=== PATIENT | female | born 1970 | race Caucasian/White ===

== ENCOUNTER → 2016-04-29 | Outpatient (CLI) | payer OTHER | LOC: MMPC 09:00 | PROVIDERS: ATTEND Family Medicine | DX: G89.29 Other chronic pain (principal); E10.9 Type 1 diabetes mellitus without complications; F32.9 Major depressive disorder, single episode, unspecified; G47.09 Other insomnia | CPT/HCPCS: 99213; G0463 ==

== ENCOUNTER 2016-05-19 11:44 | Day surgery (SDC) | payer OTHER ==
[~2016-05-19 11:44] MED LIST: LIDOCAINE W/ SODIUM BICARB 0.5 ML SYR ONE; Lactated Ringers 1,000 ML PRIMARY IV ONE; ceFAZolin Inj 2gm (Premix) 50 ML IV ONE
[2016-05-19 12:26] VITALS: RESP 16
[2016-05-19 12:55] LABS: CALCIUM 8.7 mg/dL (8.7-10.7); POTASSIUM 4.6 meq/L (3.8-5.2)
[2016-05-19] MEDS ORDERED: MEPIVACAINE HCL/PF 20 MG/1 ML IV ONE (13:39)
[2016-05-19] MEDS ORDERED: LIDOCAINE 2%/ EPI 1:200,000 - 20 ML VIAL ONE (13:39)
[2016-05-19] MEDS ORDERED: MIDAZOLAM 5 MG/1 ML ONE (13:40)
[2016-05-19] MEDS ORDERED: fentaNYL Inj 100 MCG/2 ML VIAL ONE (13:40)
[2016-05-19] MEDS ORDERED: DEXAMETHASONE SOD PHOSPHATE 4 MG/1 ML VIAL ONE (13:40)
--- NOTE | 2016-05-19 14:11 | CRNA.PROCE ---
Nerve Block Documentation - - Safety Measures: Time Out Taken, Site Verified - - Type of Nerve Block Used: Left Axillary Block (Primary anesthetic for Left CTR. 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
[2016-05-19] MEDS ORDERED: Prochlorperazine Tab 10 MG TAB PO PRN (16:08)
[2016-05-19] MEDS ORDERED: IBUPROFEN 400 MG TABLET PO PRN (16:08)
[2016-05-19] MEDS ORDERED: ACETAMINOPHEN 325 MG TABLET PO PRN (16:08)
[2016-05-19] MEDS ORDERED: NORMAL SALINE 10 ML SYRINGE FLUSH IVP PRN (16:08)
[2016-05-19] MEDS ORDERED: HYDROcodone-APAP 5 MG -325 MG TABLET PO PRN (16:08)
[2016-05-19] MEDS ORDERED: BISACODYL 5 MG TABLET PO PRN (16:08)
[2016-05-19] MEDS ORDERED: ONDANSETRON 4 MG/2 ML VIAL IVP PRN (16:08)
[2016-05-19] MEDS ORDERED: diphenhydrAMINE 25 MG CAPSULE PO PRN (16:08)
[2016-05-19] MEDS ORDERED: BISACODYL 10 MG SUPPOSITORY RECTAL PRN (16:08)
[2016-05-19] MEDS ORDERED: CALCIUM CARBONATE 500 MG (TUMS) CHEWABLE TABLET PO PRN (16:08)
[2016-05-19] MEDS ORDERED: MORPHINE SULFATE 2 MG/1 ML IVP PRN (16:08)
[2016-05-19] MEDS ORDERED: MAG HYDROX/AL HYDROX/SIMETH 30 ML SUSP PO PRN (16:08)
[2016-05-19] MEDS ORDERED: Ondansetron ODT Tab 8 MG TAB PO PRN (16:08)
[2016-05-19 17:01] VITALS: TEMP 97
== END 2016-05-19 16:50 | disposition home or self-care (01) ==
LOC: SDSC 11:44
PROVIDERS: ATTEND Orthopaedic Surgery
DX: G56.02 Carpal tunnel syndrome, left upper limb (principal)
CPT/HCPCS: 36415; 64721; 80048; J0690; J3010; J0670; J1100; J2250; J7120

== ENCOUNTER → 2016-05-27 | Outpatient (CLI) | payer OTHER | LOC: MOB LAB 10:46 | PROVIDERS: ATTEND Family Medicine | DX: M54.2 Cervicalgia (principal); E55.9 Vitamin D deficiency, unspecified; E10.9 Type 1 diabetes mellitus without complications; E10.42 Type 1 diabetes mellitus with diabetic polyneuropathy; Z79.4 Long term (current) use of insulin; N18.9 Chronic kidney disease, unspecified; M25.532 Pain in left wrist; G89.29 Other chronic pain; K59.03 Drug induced constipation; F32.9 Major depressive disorder, single episode, unspecified; F17.210 Nicotine dependence, cigarettes, uncomplicated | CPT/HCPCS: 36415; 82306; 99213; G0463 ==

== ENCOUNTER → 2016-06-22 | Outpatient (CLI) | payer OTHER | LOC: MOB LAB 10:55 | PROVIDERS: ATTEND Family Medicine | DX: M54.2 Cervicalgia (principal); E10.42 Type 1 diabetes mellitus with diabetic polyneuropathy; Z79.4 Long term (current) use of insulin; N18.9 Chronic kidney disease, unspecified; G47.09 Other insomnia; M54.5 Low back pain; G89.29 Other chronic pain | CPT/HCPCS: 99214; G0463 ==

== ENCOUNTER → 2016-07-20 | Outpatient (CLI) | payer OTHER | LOC: MMPC 09:00 | PROVIDERS: ATTEND Family Medicine | DX: G89.4 Chronic pain syndrome (principal); E11.42 Type 2 diabetes mellitus with diabetic polyneuropathy; G47.09 Other insomnia | CPT/HCPCS: 80305; 99213; G0463 ==

== ENCOUNTER → 2016-08-17 | Outpatient (CLI) | payer OTHER ==
[2016-08-17 13:08] LABS: BASOPHILS # (AUTO) 0.06 10*3/UL; BASOPHILS % (AUTO) 0.5 % (0-1); EOSINOPHILS # (AUTO) 0.19 10*3/UL; EOSINOPHILS % (AUTO) 1.5 % (0-8); HEMATOCRIT 41.4 % (37.0-47.0); HEMOGLOBIN 13.6 g/dL (12.0-16.0); LYMPHOCYTES # (AUTO) 3.61 10*3/uL; MEAN CORPUSCULAR HEMOGLOBIN 31.5 PG (27-31); MEAN CORPUSCULAR HGB CONC 32.9 g/dL (33-37); MEAN CORPUSCULAR VOLUME 95.8 FL (81-99); MEAN PLATELET VOLUME 9.4 FL (7.4-12.2); MONOCYTES # (AUTO) 0.94 10*3/UL (0.3-0.8); MONOCYTES % (AUTO) 7.5 % (5-15); NEUTROPHILS # (AUTO) 7.76 10*3/UL; NEUTROPHILS % (AUTO) 61.6 % (50-80); PLATELET MORPHOLOGY COMMENT NORMAL MORPHOLOGY (NORM); RBC MORPHOLOGY COMMENT NORMAL MORPHOLOGY (NORM); RED BLOOD COUNT 4.32 10^6/uL (4.20-5.40); WBC MORPHOLOGY COMMENT NORMAL MORPHOLOGY (NORM)
--- NOTE | 2016-08-17 13:13 | EKG ---
[address] [address] Measurements Intervals [place] Rate: 60 P: 71 OK: 156 QRS: 70 QRSD: 93 T: 63 QT: 404 QTc: 405 Interpretive Statements SINUS RHYTHM Compared to ECG 11/28/2014 13:14:46 No significant changes Electronically Signed On 08-17-16 18:04:38 MDT by Raji Gann [email or web address]
[2016-08-17 13:52] LABS: BLOOD UREA NITROGEN 11 mg/dL (7-22); BUN/CREATININE RATIO 12.22 (6-20); CALCIUM 9.5 mg/dL (8.7-10.7); CHOL/HDL RATIO 2.61 RATIO (0-4.0); EST GLOMERULAR FILTRATION > 60 (>60 ml/min/1.73m(2)); HDL CHOLESTEROL 47 mg/dL (40-150); SERUM ALBUMIN 3.9 g/dL (3.5-4.8); SERUM CHOLESTEROL 123 mg/dL (120-200)
[2016-08-17 14:41] LABS: FREE T4 (FREE THYROXINE) 0.83 ng/dL (0.93-1.71)
--- NOTE | 2016-08-17 15:29 | DI ---
PA /LATERAL CHEST X-RAY, 08/17/2016 12:09 PM : Clinical History: Preoperative exam Previous Exam: March 17, 2006 There is no acute soft tissue or bony abnormality. Heart size is normal. Lungs are clear. Mediastinal structures are normal. There are no pulmonary nodules. IMPRESSION: Normal chest x-ray.
== END ==
LOC: RAD 12:37
PROVIDERS: ATTEND Family Medicine
DX: M25.512 Pain in left shoulder (principal); E10.9 Type 1 diabetes mellitus without complications; Z79.4 Long term (current) use of insulin; I10 Essential (primary) hypertension; E78.5 Hyperlipidemia, unspecified; E55.9 Vitamin D deficiency, unspecified; F17.200 Nicotine dependence, unspecified, uncomplicated
CPT/HCPCS: 36415; 71020; 80053; 80061; 82306; 83036; 84439; 84443; 85025; 93005; 93010

== ENCOUNTER → 2016-09-17 | Outpatient (CLI) | payer OTHER ==
[2016-09-17 12:25] LABS: FREE T4 (FREE THYROXINE) 0.93 ng/dL (0.93-1.71)
[2016-09-17 17:28] LABS: HEMATOCRIT 40.9 % (37.0-47.0); HEMOGLOBIN 13.4 g/dL (12.0-16.0); MEAN CORPUSCULAR HGB CONC 32.8 g/dL (33-37); MEAN CORPUSCULAR VOLUME 97.6 FL (81-99); MEAN PLATELET VOLUME 9.8 FL (7.4-12.2); RED BLOOD COUNT 4.19 10^6/uL (4.20-5.40)
[2016-09-17 17:37] LABS: BLOOD UREA NITROGEN 23 mg/dL (7-22); BUN/CREATININE RATIO 25.55 (6-20); CALCIUM 9.4 mg/dL (8.7-10.7); EST GLOMERULAR FILTRATION > 60 (>60 ml/min/1.73m(2)); SERUM ALBUMIN 4.1 g/dL (3.5-4.8)
[2016-09-17 17:40] LABS: HEMOGLOBIN A1C 7.43 % (4.2-6.0)
== END ==
LOC: MOB LAB 10:15
PROVIDERS: ATTEND Family Medicine
DX: M25.512 Pain in left shoulder (principal); E03.9 Hypothyroidism, unspecified; E11.42 Type 2 diabetes mellitus with diabetic polyneuropathy; Z79.4 Long term (current) use of insulin; R10.84 Generalized abdominal pain; R05 Cough; I10 Essential (primary) hypertension; E78.5 Hyperlipidemia, unspecified; E55.9 Vitamin D deficiency, unspecified; M54.2 Cervicalgia; F17.200 Nicotine dependence, unspecified, uncomplicated
CPT/HCPCS: 36415; 80053; 82306; 83036; 84439; 84443; 85027; 99213; G0463

== ENCOUNTER → 2016-10-15 | Outpatient (CLI) | payer OTHER | LOC: MMPC 09:00 | PROVIDERS: ATTEND Family Medicine | DX: E10.42 Type 1 diabetes mellitus with diabetic polyneuropathy (principal); G89.29 Other chronic pain | CPT/HCPCS: 80305; 99213; G0463 ==

== ENCOUNTER → 2016-11-13 | Outpatient (CLI) | payer OTHER ==
[2016-11-13 15:44] LABS: BILIRUBIN,URINE NEGATIVE (NEG); CLARITY,URINE CLEAR (CLEAR); COLOR,URINE YELLOW; GLUCOSE, URINE (UA) NEGATIVE (NEG); NITRATE,URINE NEGATIVE (NEG); OCCULT BLOOD,URINE NEGATIVE (NEG); PROTEIN,URINE NEGATIVE (NEG); URINE SAMPLE TYPE VOIDED SPECIMEN; UROBILINOGEN,URINE 0.2 mg/dL (0.2)
[2016-11-13 15:48] LABS: SQUAMOUS EPITHELIAL CELL,UR MANY
[2016-11-13 15:49] LABS: BACTERIA,URINE MODERATE
[2016-11-13 17:28] LABS: FREE T4 (FREE THYROXINE) 0.76 ng/dL (0.93-1.71)
== END ==
LOC: MOB LAB 14:31
PROVIDERS: ATTEND Family Medicine
DX: R31.9 Hematuria, unspecified (principal); E03.9 Hypothyroidism, unspecified; E10.9 Type 1 diabetes mellitus without complications; Z79.4 Long term (current) use of insulin; N18.9 Chronic kidney disease, unspecified; M54.2 Cervicalgia; G62.89 Other specified polyneuropathies; M75.42 Impingement syndrome of left shoulder; G47.09 Other insomnia; Z02.83 Encounter for blood-alcohol and blood-drug test; Z72.0 Tobacco use
CPT/HCPCS: 80305; 81001; 84439; 84443; 99214; G0463